=== PATIENT | female | born 1940 | race Caucasian/White ===

== ENCOUNTER 2017-06-24 06:17 | Day surgery (SDC) | payer MEDICARE, OTHER ==
[~2017-06-24 06:17] MED LIST: Midazolam 1 MG/ML 2 ML SDV ONE; fentaNYL 100 MCG/2 ML SDV ONE
[2017-06-24] MEDS ORDERED: fentaNYL 100 MCG/2 ML SDV IV ONE ×3 (06:18→07:27)
[2017-06-24] MEDS ORDERED: Midazolam 1 MG/ML 2 ML SDV IV ONE ×3 (06:18→07:29)
[2017-06-24] MEDS ORDERED: Sodium Chloride 0.9% 10 ML Syringe FLUSH PRN (07:25)
[2017-06-24] MEDS ORDERED: Dextrose 5%-0.45% NaCl 1,000 ML IV SCH (07:30)
--- NOTE | 2017-06-24 08:04 | OR ---
DATE: 06/24/2017 PROCEDURE: Total colonoscopy. INSTRUMENT USED: CF-H180AL Olympus video colonoscope. PREMEDICATIONS: Fentanyl 100 mcg intravenous, Versed 2 mg intravenous, O2 administration. The procedure was done under pulse oximetry, BP recording, and java development team lead. INDICATION: The patient with previous villotubular adenoma. Surveillance colonoscopic examination is done for detection of any polypoid lesions and removal, endoscopic hemostasis therapy if needed. DESCRIPTION OF PROCEDURE: Initial rectal exam showed external hemorrhoidal tags. Rigid anoscopy was normal. The colonoscope was passed with ease up to the ileocecal area, photographs were taken of the normal-appearing cecum, identified by landmarks of appendiceal orifice and double-bulged ileocecal folds. No bleeding was noted from any of the visualized areas at the commencement of the examination. No stricture. No vascular ectasia. No large isolated ulcerations seen. No evidence of diffuse inflammatory bowel disease in the form of friability, contact bleeding, or ulcerations. No polyp or tumor mass identified. Probing the proximal sides of folds and flexures, using adequate distention and clearing of the stool material, withdrawal of the scope was made, cecum to rectum time over 6 minutes. No bleeding was noted from any of the visualized areas at the completion of examination. IMPRESSION: External hemorrhoids. The patient tolerated the procedure well. [facility] /[id number]
[2017-06-24 10:42] VITALS: BP 129/80
== END 2017-06-24 09:53 | disposition home or self-care (01) ==
LOC: DL.ENDO 06:17
PROVIDERS: ATTEND Internal Medicine Gastroenterology
DX: Z12.11 Encounter for screening for malignant neoplasm of colon (principal); K64.4 Residual hemorrhoidal skin tags; Z85.038 Personal history of other malignant neoplasm of large intestine; E78.5 Hyperlipidemia, unspecified; E03.9 Hypothyroidism, unspecified; Z90.49 Acquired absence of other specified parts of digestive tract; Z98.890 Other specified postprocedural states
CPT/HCPCS: G0105; J7042; J2250; J3010

== ENCOUNTER 2022-01-19 09:37 | Inpatient (IN) | payer MEDICARE, OTHER ==
[2022-01-19] MEDS ORDERED: Ondansetron 4 MG/2 ML SDV IVPUSH ONE (10:09)
[2022-01-19] MEDS ORDERED: Sodium Chloride 0.9% 1,000 ML IV ONE (10:10)
[2022-01-19 10:33] LABS: ANION GAP 16.4 mEq/L (7-13)
[2022-01-19 10:54] LABS: CORONAVIRUS COVID-19 NAA NEGATIVE (NEGATIVE)
[2022-01-19] MEDS ORDERED: Promethazine 25 MG/ML SDV IM PRN (13:03)
[2022-01-19] MEDS ORDERED: Polyethylene Glycol 3350 Powder 17 GM Packet PO PRN (13:03)
[2022-01-19] MEDS ORDERED: Bisacodyl 5 MG Tab PO PRN (13:03)
[2022-01-19] MEDS ORDERED: Acetaminophen/HYDROcodone 325-5 MG Tab PO PRN (13:03)
[2022-01-19] MEDS ORDERED: Acetaminophen 325 MG Tab PO PRN (13:03)
[2022-01-19] MEDS ORDERED: Albuterol/Ipratropium 3.0-0.5 MG/3 ML Neb Soln NEB PRN (13:03)
[2022-01-19] MEDS ORDERED: HYDROmorphone 0.5 MG/0.5 ML Syringe IVPUSH PRN (13:03)
[2022-01-19] MEDS ORDERED: Sodium Chloride 0.9% 1,000 ML IV SCH (13:30)
[2022-01-19] MEDS ORDERED: Meclizine 12.5 MG Tab PO PRN (13:56)
[2022-01-19] MEDS ORDERED: Aspirin 81 MG Tab.Chew PO ONE (14:00)
[2022-01-19 14:42] LABS: HEMOGLOBIN A1C 5.8 % (<5.7)
[2022-01-19] MEDS ORDERED: Ondansetron 4 MG/2 ML SDV IVPUSH PRN (16:00)
[2022-01-19] MEDS ORDERED: Aluminum Hydroxide/Magnesium Hydroxide/Simethicone Susp 30 ML Cup PO PRN (22:32)
[2022-01-19] MEDS ORDERED: Nitroglycerin 0.4 MG Tab.SL SL PRN (22:32)
[2022-01-19] MEDS ORDERED: Metoprolol Tartrate 5 MG/5 ML SDV IVPUSH PRN (22:33)
[2022-01-20] MEDS: Levothyroxine 75 MCG Tab PO SCH (05:59)
[2022-01-20 07:10] LABS: ANION GAP 15.6 mEq/L (7-13); CHLORIDE,CL 107 mmol/L (98-107); SODIUM,NA 143 mmol/L (136-145)
[2022-01-20] MEDS ORDERED: Magnesium Sulfate/Water 2 GM in Premix Bag 1 BAG IV ONE ×3 (07:36→11:00)
[2022-01-20] MEDS ORDERED: QUEtiapine 25 MG Tab PO ONE (07:40)
[2022-01-20] MEDS: Multivitamin Tab PO SCH (10:35)
[2022-01-20] MEDS: Metoprolol Succinate 25 MG Tab.ER PO SCH (10:36)
[2022-01-20] MEDS: Famotidine 20 MG Tab PO SCH ×2 (10:36→20:36)
[2022-01-20] MEDS: Timolol Maleate 0.5% Ophth Soln 5 ML Bottle EYEBOTH SCH ×2 (10:37→20:37)
[2022-01-20] MEDS: Calcium Carbonate/Vitamin D3 1250 MG-5 MCG Tab PO SCH (10:39)
[2022-01-20] MEDS: GLUCOSAM CHONDRO HERB PO SCH (11:19)
[2022-01-20] MEDS: [UNRECOGNIZED DRUG - OTHER] PO SCH (11:19)
[2022-01-20] MEDS ORDERED: Sodium Chloride 0.9% 10 ML Syringe FLUSH PRN (11:45)
[2022-01-20] MEDS ORDERED: Warfarin 2 MG Tab PO ONE (14:00)
[2022-01-20] MEDS: Acetaminophen 500 MG Tab PO SCH (20:36)
[2022-01-20] MEDS: Simvastatin 10 MG Tab PO SCH (20:36)
[2022-01-20] MEDS: Latanoprost 0.005% Ophth Soln 2.5 ML Bottle EYEBOTH SCH (20:37)
[2022-01-20] MEDS: Psyllium Husk Powder Sugar Free 5.85 GM Packet PO SCH (23:59)
[2022-01-21] MEDS: Levothyroxine 75 MCG Tab PO SCH (05:55)
[2022-01-21 06:50] LABS: ANION GAP 12.5 mEq/L (7-13); CHLORIDE,CL 106 mmol/L (98-107); SODIUM,NA 142 mmol/L (136-145)
[2022-01-21] MEDS: Metoprolol Succinate 25 MG Tab.ER PO SCH (08:12)
[2022-01-21] MEDS: Famotidine 20 MG Tab PO SCH ×2 (08:12→20:47)
[2022-01-21] MEDS: GLUCOSAM CHONDRO HERB PO SCH (08:13)
[2022-01-21] MEDS: Calcium Carbonate/Vitamin D3 1250 MG-5 MCG Tab PO SCH (08:13)
[2022-01-21] MEDS: [UNRECOGNIZED DRUG - OTHER] PO SCH (08:13)
[2022-01-21] MEDS: Multivitamin Tab PO SCH (08:13)
[2022-01-21] MEDS: Timolol Maleate 0.5% Ophth Soln 5 ML Bottle EYEBOTH SCH ×2 (08:38→20:50)
[2022-01-21] MEDS ORDERED: Warfarin 2 MG Tab PO ONE (14:00)
[2022-01-21] MEDS: Acetaminophen 500 MG Tab PO SCH (20:48)
[2022-01-21] MEDS: Simvastatin 10 MG Tab PO SCH (20:48)
[2022-01-21] MEDS: Psyllium Husk Powder Sugar Free 5.85 GM Packet PO SCH (20:49)
[2022-01-21] MEDS: Latanoprost 0.005% Ophth Soln 2.5 ML Bottle EYEBOTH SCH (20:50)
[2022-01-22] MEDS: Levothyroxine 75 MCG Tab PO SCH (05:27)
[2022-01-22 07:05] LABS: ANION GAP 12.1 mEq/L (7-13); CHLORIDE,CL 107 mmol/L (98-107); SODIUM,NA 145 mmol/L (136-145)
[2022-01-22] MEDS: Multivitamin Tab PO SCH (08:37)
[2022-01-22] MEDS: Metoprolol Succinate 25 MG Tab.ER PO SCH (08:37)
[2022-01-22] MEDS: Calcium Carbonate/Vitamin D3 1250 MG-5 MCG Tab PO SCH (08:37)
[2022-01-22] MEDS: Famotidine 20 MG Tab PO SCH (08:37)
[2022-01-22] MEDS: Timolol Maleate 0.5% Ophth Soln 5 ML Bottle EYEBOTH SCH (08:38)
[2022-01-22] MEDS: GLUCOSAM CHONDRO HERB PO SCH (08:39)
[2022-01-22] MEDS: [UNRECOGNIZED DRUG - OTHER] PO SCH (08:39)
[2022-01-22 12:38] VITALS: BP 128/77; PULSE 94
[2022-01-22] MEDS ORDERED: Warfarin 2 MG Tab PO ONE (14:00)
== END 2022-01-22 16:20 | disposition home or self-care (01) | DRG 149 ==
LOC: DL.ED 09:37 → DL.MS 12:28
PROVIDERS: ADMIT Internal Medicine; ATTEND Internal Medicine
DX: S06.0X9A Concussion with loss of consciousness of unspecified duration, initial encounter (principal); W19.XXXA Unspecified fall, initial encounter; H81.13 Benign paroxysmal vertigo, bilateral; R42 Dizziness and giddiness; I48.11 Longstanding persistent atrial fibrillation; E87.2 Acidosis; I48.91 Unspecified atrial fibrillation; E78.00 Pure hypercholesterolemia, unspecified; I10 Essential (primary) hypertension; E03.9 Hypothyroidism, unspecified; I48.0 Paroxysmal atrial fibrillation; Z79.01 Long term (current) use of anticoagulants; M51.36 Other intervertebral disc degeneration, lumbar region; M54.32 Sciatica, left side; R32 Unspecified urinary incontinence; H40.9 Unspecified glaucoma; M81.0 Age-related osteoporosis without current pathological fracture; Z86.73 Personal history of transient ischemic attack (TIA), and cerebral infarction without residual deficits; M19.90 Unspecified osteoarthritis, unspecified site; W18.30XA Fall on same level, unspecified, initial encounter; Z74.09 Other reduced mobility; Z79.899 Other long term (current) drug therapy; Z79.890 Hormone replacement therapy; H54.7 Unspecified visual loss; K52.9 Noninfective gastroenteritis and colitis, unspecified; Z86.010 Personal history of colon polyps; M54.9 Dorsalgia, unspecified; G89.29 Other chronic pain; Z66 Do not resuscitate; R79.1 Abnormal coagulation profile; S00.03XA Contusion of scalp, initial encounter; E86.0 Dehydration; E83.42 Hypomagnesemia; Z20.822 Contact with and (suspected) exposure to COVID-19
CPT/HCPCS: 0240U; 36415; 70450; 70551; 80048; 80053; 80061; 81001; 82550; 83036; 83605; 83735; 84484; 85025; 85610; 87040; 87046; 87086; 93005; 93010; 93880; 96374; 97161; 97165; 97530; 97535; 99285; A9270-GY; J2405; J3475; J7030